=== PATIENT | male | born 1940 | race Caucasian/White ===

== ENCOUNTER → 2018-04-18 | Outpatient (CLI) | payer OTHER ==
[~2018-04-18] VITALS: Ht 175.3 cm; Wt 79.4 kg
[~2018-04-18] MED LIST: ASPIR 8181 MG PO; BYSTOLIC 5 MG5 M1 PO; COZAAR100 MG PO; DIOVAN320 MG PO; HYDROCHLOROTH12.5 M1 PO; METAMUCIL PLUS1 EACH PO; PROPECIA1 MG PO; ZOCOR80 MG PO
--- NOTE | ~2018-04-18 | CATHLAB ---
[facility] [place] [address] INVASIVE PROCEDURE REPORT Name: LIDA WARNER Room #: [facility] [id number] Admission: 04/18/18 Attend Phys: Duane Betts, Discharge: Date of : 42 Date of Service: 04/21/18 1616 Report #: [id number] THIS REPORT FOR: //name// APPROVED REPORT Study performed: 04/18/2018 09:22:01 Patient Details Patient Status: Out-Patient Room #: The patient is a 78 year-old male Event Personnel Duane Betts Release Manager, Jesus Huertas Knisely, Ceola RN RN, Sujata Trujillo RTR Monitor, Virginia Swain RTR, SENIOR TECHNICAL WRITER Monitor, Melody Rust RN Electronic Science Teacher Procedures Performed Left Heart Cath w/or w/o Coronaries [id number] [facility] Renal Bilateral Peripheral Angiography [id number] CVRENALBIL Procedure Narrative The Right Groin^ was infiltrated with 1% Lidocaine subcutaneous anesthesia. A PINNACLE 6FR Sheath #[id number] sheath was inserted into the RFA^. Coronary angiography was performed using coronary diagnostic catheters. The right coronary system was accessed and visualized with a JR4 catheter. The left coronary system was accessed and visualized with a J6FR JL5 #[id number] catheter. The left ventricle was accessed and visualized with a PIGTAIL catheter. Left ventriculogram was performed in 30 degree projection. Closure device was deployed with a 6 Fr MYNXGRIP 6/7F #[id number]. There was no hematoma. Intraoperative Conscious Sedation Sedation start time: 11.28 Case end Time: 11.39 Fentanyl 50 mcg Versed 1 mg Fluoro Time: 3.11 minutes Dose: DAP 2939.40 cGycm2 320 mGy Contrast Type and Amount: Omnipaque 150 ml Hemodynamics The aortic pressure is 189/84 mmHg with a mean of 124 mmHg. The left ventricular pressure is 194/14 mmHg with a mean of mmHg. The left ventricular end diastolic pressure is 30 mmHg. [facility] [address] [place] [address] INVASIVE PROCEDURE REPORT Name: LIDA WARNER [facility] [id number] Admission: 04/18/18 Attend Phys: Duane Betts, Discharge: Date of : 42 Date of Service: 04/21/18 1616 Report #: [id number] Conclusion #1 left main moderately diseased with calcification giving rise to LAD and circumflex. 30-40% throughout #2 LAD heavily calcified mild to moderate disease throughout it extends around the apex moderate disease of the diagonal system no high-grade occlusive disease 50-60% proximal narrowing #3 circumflex OM is nondominant with mild irregularity and also heavy calcification small OM system. Tight second OM branch with this is a 1.5 vessel. Treat medically #4 proximal dominant right coronary occlusion. There is extensive collateralization from the left system predominantly septal perforators to the PDA and MARCELINA. #5 left renal artery with 20% ostial disease #6 right renal artery with a 30-40% ostial narrowing #7 normal left ventricular size and systolic function lower limits of normal inferior base is hypokinetic. #8 abdominal aortogram is mild aortic ectasia and calcification but no significant aneurysm or stenosis is noted an aorto iliac system Continue aggressive risk factor modification. There is no indication for coronary intervention. The RCA occlusion appears to have been a remote event with excellent collateralization. No lifting for 48 hours no line tub Jacuzzi or Mullen for a week. Follow-up will be arranged <ELECTRONICALLY SIGNED> By: Duane Betts MD, FACC 04/21/18 161 15 15 Duane Betts MD, FACC /INF
--- NOTE | ~2018-04-18 | H ---
[facility] [address] [place] [address] HISTORY AND PHYSICAL Name: LIDA WARNER Room #: REG [facility]#: [id number] Admission: 04/18/18 Attend Phys: Duane Betts MD, Discharge: Date of : 42 Report #: [id number] THIS REPORT FOR: //name// CC: Samuel Betts HISTORY OF PRESENT ILLNESS: The patient is a 78-year-old male who is admitted today for right and left heart catheterization. Has had some chest pain with some typical and atypical features and a nuclear stress test suggesting inferior lateral ischemia. Possibly in the circumflex distribution. He had been having chest pain, but recently has been stable, he says and no real recurrence of this. He does have known vascular disease with a prior carotid endarterectomy. He has been compliant with his medications. MEDICATIONS: He has been maintained on baby aspirin; Propecia; Cozaar; metformin, which has been held, 1000 b.i.d.; simvastatin 80; omeprazole; and Metamucil. PAST MEDICAL HISTORY: Positive for the suspected coronary artery disease, carotid endarterectomy, hypertension, hypercholesterolemia, erectile dysfunction, DJD, COPD, prior smoker and diabetes. FAMILY HISTORY: Mother had premature coronary artery disease. SOCIAL HISTORY: He is . He is a prior smoker. Had a history of moderate alcohol intake in the past. REVIEW OF SYSTEMS: Essentially negative except for as stated above and some nocturia and frequency is noted. PHYSICAL EXAMINATION: VITAL SIGNS: Pulse of 60s, blood pressure 170/80. He has had labile hypertension. HEENT: Eyes reveal xanthelasmas. Pharynx is clear. NECK: Shows preserved upstrokes, faint right-sided bruit is noted. No JVD. LUNGS: Have prolonged expiratory phase. CARDIAC: Regular rate and rhythm; S1, S2. ABDOMEN: Soft. No HSM or abdominal bruit. EXTREMITIES: Reveal trace of edema. Distal pulses were intact. NEUROLOGIC: Nonfocal. SKIN: Warm and dry without xanthoma or ulcer. MUSCULOSKELETAL: No gross joint deformity. ASSESSMENT: 1. Suspected coronary artery disease with abnormal nuclear test. [facility] [address] [place] [address] HISTORY AND PHYSICAL Name: LIDA WARNER Room #: [facility]#: [id number] Admission: 04/18/18 Attend Phys: Duane Betts MD, Discharge: Date of : 42 Report #: [id number] 2. Labile refractory hypertension, possible renal artery stenosis or renal atherosclerosis. 3. Diabetes. 4. Hypertension. 5. Hypercholesterolemia. 6. Chronic obstructive pulmonary disease. 7. Strong family history of premature coronary artery disease. RECOMMENDATIONS AND PLAN: The patient will proceed to the catheterization lab and delineate his anatomy. Risks, benefits, alternatives were discussed with the patient and patient's and they elect to proceed. Thank you for asking me to assist in the care of this patient. <ELECTRONICALLY SIGNED> By: Daune Betts MD, [facility] 04/18/18 1246 0919 [id number] Duane Betts MD, [facility] /nt
[2018-04-18 08:31] VITALS: BP 170/80
[2018-04-18 09:08] LABS: HEMATOCRIT 38.8 % (42.0-52.0); HEMOGLOBIN 13.8 gm/dL (14.0-18.0); MCH 30.8 pg (26.0-34.0); MCHC 35.5 g/dL (28.0-37.0); MCV 86.8 fL (80.0-100.0); RBC 4.47 mil/uL (4.50-6.00); RDW 12.6 % (10.5-14.5); WBC 3.7 thou/uL (4.0-11.0)
[2018-04-18 09:16] LABS: CALCIUM 9.1 mg/dL (8.5-10.1); CREATININE 0.9 mg/dL (0.7-1.3); POTASSIUM 4.2 mmol/L (3.5-5.1)
== END | disposition home or self-care (01) ==
LOC: CATH 08:09
PROVIDERS: Internal Medicine Cardiovascular Disease
DX: I25.10 Atherosclerotic heart disease of native coronary artery without angina pectoris (principal); I25.82 Chronic total occlusion of coronary artery; I77.819 Aortic ectasia, unspecified site; I77.1 Stricture of artery; I65.23 Occlusion and stenosis of bilateral carotid arteries; I10 Essential (primary) hypertension; E78.00 Pure hypercholesterolemia, unspecified; M19.90 Unspecified osteoarthritis, unspecified site; J44.9 Chronic obstructive pulmonary disease, unspecified; E11.9 Type 2 diabetes mellitus without complications; Z87.891 Personal history of nicotine dependence; Z79.899 Other long term (current) drug therapy; Z79.82 Long term (current) use of aspirin; Z82.49 Family history of ischemic heart disease and other diseases of the circulatory system; Z98.890 Other specified postprocedural states

== ENCOUNTER → 2019-06-19 | Outpatient (CLI) | payer OTHER ==
[~2019-06-19] VITALS: Ht 175.3 cm; Wt 79.4 kg
[~2019-06-19] MED LIST changes: +ARED PO; +EDARBI40 MG PO; +NORCO 5-325 TA1 EAC1 PO; +NORVASC5 MG PO; +PRESERVISION A1 EAC2 PO; +VITAMIN D3 COM1 EACH PO
--- NOTE | ~2019-06-19 | HPC ---
[facility] [address] [place] [address] PAIN MANAGEMENT CONSULTATION Name: LIDA WARNER Room #: REG [facility] Sun#: [id number] Admission: 06/19/19 Attend Phys: Sapphire Brown MD Discharge: Date of : 42 Report #: [id number] THIS REPORT FOR: //name// CC: Samuel Brown DATE OF SERVICE: 06/19/2019 CHIEF COMPLAINT: Pain in the back of the head and radiating over the top of the head and sometimes into the area of the eye. HISTORY OF PRESENT ILLNESS: The patient is a 79-year-old gentleman who has been referred to the Pain Clinic because of pain and discomfort that he has been experiencing. It involves his neck. This then radiates to the lateral portion of his head as well as sometimes to the top of his head. He has some perception of throbbing and discomfort behind his eye. Denies any rash. He has not had shingles in the past. He denies any trauma. He has not had surgery in the neck. Denies any similar problem. Describes as electrical component to it and feels like he experiences a shock. Denies anything that makes it significantly worse or better. Describes as rhythmic, periodic, aching, sharp and stabbing. Rates it as a 6/10 today. Oftentimes between a 4-8 depending on the time of day. Does not have a history of headaches. ALLERGIES: No known drug allergies. CURRENT MEDICATIONS: Multivitamins, ____ vitamin D3 capsule, azilsartan 40 mg, Norvasc 5 mg, hydrocodone 5/325 one p.o. q. 4 hours p.r.n. pain, simvastatin 80 mg, aspirin 81 mg. PAST MEDICAL HISTORY: Carotid artery disease, lumbar disk disease, generalized anxiety disorder, GERD, esophageal reflux, vertigo/dizziness, benign prostatic hypertrophy with lower urinary tract symptoms, hyperlipidemia, and hypertension. PAST SURGICAL HISTORY: Back upper 4 vertebrae 1989. SOCIAL HISTORY: He is retired, 2002, [employer]cology Social [employer] of the company. REVIEW OF SYSTEMS: Generally good health, fatigue, weakness, wears glasses, blurred vision, hearing loss, chronic sinus problems, mini stroke, fatigue, weakness. LABORATORY DATA: No laboratory values are available at the time of our interview. PAIN CLINIC ASSESSMENT/PQRS: 1. The patient is not being treated for [place] [address] PAIN MANAGEMENT CONSULTATION Name: LIDA WARNER [id number] Admission: 06/19/19 Attend Phys: Sapphire Brown MD Discharge: Date of : 42 Report #: [id number] 2. Height 5 feet 9 inches, weight 175 pounds, BMI is 25.8. 3. Vital Signs: Blood pressure 121/70, pulse 71, respiratory rate 16, room air saturation 98%. 4. Pain intensity, 10 5. Fall history: The patient has not fallen in the last 3 months. 6. Blood thinner. The patient is not on a blood thinning medication. 7. Hypertension. The patient is being treated for hypertension. 8. Opioids greater than 6 weeks. The patient is not on a regular opioid regimen. 9. Risk assessment tool, low for opioid use. 10. Functional assessment tool, . 11. Recreational drug use. The patient denies. 12. Tobacco: The patient is a former smoker. 13. Alcohol: The patient denies frequent use of alcoholic beverages. PHYSICAL EXAMINATION: GENERAL: The patient is a well-developed, well-nourished white male. Appears his stated age. He is alert and oriented x 3. His affect is appropriate. Speech is fluent. HEENT: Normocephalic, atraumatic. Extraocular eye muscles intact. Sclerae nonicteric. Mucous membranes are moist. NECK: Without adenopathy. LUNGS: Generally clear to auscultation. CARDIAC: S1, S2. ABDOMEN: Nontender. Bowel sounds present. EXTREMITIES: Upper extremity muscle strength judged to be 5/5 for the major muscle groups in the upper extremity. The patient is without significant scoliosis, kyphosis or lordosis. Lower extremity muscle strength judged to be 5/5 for the major muscle groups in the upper extremity. The patient has pain and discomfort in the left occipital area. Palpation of this area causes a reproduction of the patient's pain and discomfort in the left side. Has a perception of some pain and discomfort behind the left eye. Some discomfort over the lateral temporal area. Has noted some discomfort on the top of his head. IMPRESSION: 1. Pain involving the area of the left greater occipital nerve. 2. Carotid artery disease. 3. Lumbar disk disease. 4. Generalized anxiety disorder. 5. Gastroesophageal reflux disease. 6. Esophageal reflux. 7. Vertigo/dizziness. 8. Benign prostatic hypertrophy with lower urinary tract symptoms. 9. Hyperlipidemia. 10. Hypertension. [facility] [address] [place] [address] PAIN MANAGEMENT CONSULTATION Name: LIDA WARNER Room #: REG [facility]#: [id number] Admission: 06/19/19 Attend Phys: Sapphire Brown MD Discharge: Date of : 42 Report #: [id number] RECOMMENDATIONS: We discussed treatment options with the patient. We explained to the patient that his findings are typical for occipital neuralgia. He has pain and discomfort in a distribution that is commonly described. Radiates up the left side of his head. Some patients have discomfort and a feeling of pressure behind their eye on the ipsilateral side. We have discussed the risk and benefits of injecting the area of the left occipital nerve. Possible complications of the procedure could include infection, worsening pain, no improvement in pain, infection, bleeding and the patient elects to proceed. PROCEDURE NOTE: The patient questions were sought and answered. He was taken to the procedure area. He was then assisted in getting on the examination table. The left occipital area was sterilely prepped with a chlorhexidine solution and allowed to dry. This area was then injected using a 25-gauge needle and a total of 7 mL of 0.5% bupivacaine and 40 mg triamcinolone was injected. The patient tolerated the procedure well. He was then taken to the recovery room where he remained for an appropriate amount of time. His pain decreased to 0 at the time of discharge. He will follow up in the future as needed. We would like to thank you for letting us participate in his care. We hope he continues to improve. By: [id number] Sapphire Brown MD /nt
[2019-06-19 11:09] VITALS: BP 121/70
--- NOTE | 2019-06-19 11:27 | NUR ---
Pain Clinic Assessment: 1. History of Osteoarthritis: Not Applicable Not Applicable History of Rheumatoid Arthritis: Not Applicable 2. Height: 5 ft. 9 in. 175.3 cm. Weight: 175.0 lb. oz. 79.380 kg. Patient's BMI: 25.8 3. Vital Signs: BP: 121/70 Pulse: 72 Resp: 16 Temp: 02 Sat: 98 ECG Mon: 4. Pain Intensity: 6 5. Fall Risk: Dizziness: N Needs help standing or walking: N Fallen in the last 3 months: N Fall risk comments: 6. Patient on Blood Thinner: None 7. History of Hypertension: Y 8. Opioid Therapy greater than 6 weeks: N Opiate Contract Signed: 9. Risk Assessment Tool Provided: low-0 10. Functional Assessment Tool: 11. Recreational Drug Use: Never Drug Type: Tobacco Use: Former Smoker Tobacco Type: Amount or Packs/day: How Many Years: Alcohol Use: No Frequency: Quant:
== END | disposition home or self-care (01) ==
LOC: PAIN 06:50
DX: M54.81 Occipital neuralgia (principal); G89.29 Other chronic pain; I10 Essential (primary) hypertension; E78.5 Hyperlipidemia, unspecified; N40.1 Benign prostatic hyperplasia with lower urinary tract symptoms; K21.9 Gastro-esophageal reflux disease without esophagitis; F41.1 Generalized anxiety disorder; I65.29 Occlusion and stenosis of unspecified carotid artery; R42 Dizziness and giddiness; Z79.891 Long term (current) use of opiate analgesic; Z98.890 Other specified postprocedural states; Z79.899 Other long term (current) drug therapy; Z87.891 Personal history of nicotine dependence; Z79.82 Long term (current) use of aspirin

== ENCOUNTER → 2019-07-01 | Outpatient (CLI) | payer OTHER ==
[~2019-07-01] VITALS: Ht 175.3 cm; Wt 79.8 kg
--- NOTE | ~2019-07-01 | HPC ---
[facility] [place] [address] [place] [address] PAIN MANAGEMENT CONSULTATION Name: LIDA WARNER Room #: REG [facility].#: [id number] Admission: 07/01/19 Attend Phys: Sapphire Brown MD Discharge: Date of : 42 Report #: [id number] THIS REPORT FOR: //name// CC: Samuel Brown DATE OF SERVICE: 07/01/2019 PRIMARY CARE PHYSICIAN: Samuel Iraheta MD CHIEF COMPLAINT: "The pain improved and it has gone from my shoulder, but I am still having pain on the top of my head around the temporal area and into the eye." HISTORY: The patient is a 79-year-old gentleman who has been seen in the pain clinic because of chronic pain. He has had pain in the left occipital area. He underwent an injection at the last visit. He noticed resolution of pain and discomfort he was experiencing in the lower portion of his neck down the shoulder and into the posterior neck area. He now has pain, which is most problematic over the top of his head around the lateral temporal area, in the area of the forehead and has some perception of pain and discomfort behind his left eye. ALLERGIES: No known drug allergies. CURRENT MEDICATIONS: Multivitamins, vitamin D3, Azilsartan 40 mg, Norvasc 5 mg, hydrocodone 5/325 one p.o. 4 hours p.r.n. pain, simvastatin 80 mg, aspirin 81 mg. PAIN CLINIC ASSESSMENT/PQRS: 1. The patient is not being treated for osteoarthritis or rheumatoid arthritis. 2. Height 5 feet 9 inches, weight 176 pounds, BMI is 26. 3. Vital signs: Blood pressure 123/75, pulse 67, respiratory rate 14, room air saturation 98%. 4. Pain intensity 05/20. 5. Fall risk. The patient has not fallen in the last 3 months. 6. Blood thinner. The patient is not on a blood thinning medication. 7. Hypertension. The patient is being treated for hypertension. 8. Opioids greater than 6 weeks. The patient receives medication from one source. 9. Risk assessment tool, low for opioid use. 10. Functional assessment tool . 11. Recreational drug use. The patient denies. 12. Tobacco: The patient is a former smoker. 13. Alcohol. The patient denies frequent use of alcoholic beverages. [address] [address] PAIN MANAGEMENT CONSULTATION Name: LIDA WARNER Room #: REG [facility]#: [id number] Admission: 07/01/19 Attend Phys: Sapphire Brown MD Discharge: Date of : 42 Report #: [id number] PHYSICAL EXAMINATION: GENERAL: The patient is a well-developed, well-nourished white male. Appears his stated age. He is alert and oriented x 3. His affect is appropriate. Speech is fluent. HEENT: Normocephalic, atraumatic. Extraocular eye muscles intact. Sclerae nonicteric. Mucous membranes are moist. The patient has pain and discomfort in the left occipital area. Complains of pain that radiates up the area of the occipital nerve toward the left temporal area and notes some pain and discomfort in the left eye area. LUNGS: Clear to auscultation. CARDIAC: S1, S2. ABDOMEN: Nontender. Bowel sounds present. EXTREMITIES: Upper extremity muscle strength judged to be 5/5 for the major muscle groups in the upper extremity. The patient is without significant scoliosis, kyphosis or lordosis. The patient's lower extremity muscles are judged to be 5/5 for the major muscle groups in the lower extremity. The patient has pain in the occipital area towards the forehead. Has a perception of pain behind his left eye. IMPRESSION: 1. Improved right or left neck pain after injection of the left greater occipital nerve. 2. Carotid artery disease. 3. Lumbar disk disease. 4. Generalized anxiety disorder. 5. Gastroesophageal reflux. 6. Esophageal reflux. 7. Vertigo/dizziness. 8. Benign prostatic hypertrophy with urinary tract symptoms. 9. Hyperlipidemia. 10. Hypertension. RECOMMENDATIONS: We discussed treatment options with the patient. Risks and benefits of an injection in the occipital area were again discussed. Possible complications of the procedure, which could include but are not limited to infection, worsening the pain, no improvement in pain, bleeding, nerve damage were discussed and the patient elects to proceed. PROCEDURE NOTE: The patient was taken to the procedure area. He was then assisted in getting on the examination table. He was placed in the prone position. The left occipital area was sterilely prepped with a Betadine solution. A 25-gauge needle was then advanced into the area of the left greater occipital nerve. Aspiration was negative. A total of 8 mL of 0.5% bupivacaine and 40 mg triamcinolone was injected. The patient tolerated the procedure well. There were no complications. His pain decreased to 0 at the time of discharge. He is going to [place] for a social visit. He will call us if he has any [address] [address] PAIN MANAGEMENT CONSULTATION Name: LIDA WARNER Room #: REG [facility]#: [id number] Admission: 07/01/19 Attend Phys: Sapphire Brown MD Discharge: Date of : 42 Report #: [id number] concerns. We would like to thank you for letting us participate in his care. We hope he continues to improve. By: [id number] Sapphire Brown MD /CHRISTEN
[2019-07-01 08:59] VITALS: BP 123/75
--- NOTE | 2019-07-01 09:14 | NUR ---
Pain Clinic Assessment: 1. History of Osteoarthritis: Not Applicable Not Applicable History of Rheumatoid Arthritis: Not Applicable 2. Height: 5 ft. 9 in. 175.3 cm. Weight: 176.0 lb. oz. 79.833 kg. Patient's BMI: 26.0 3. Vital Signs: BP: 123/75 Pulse: 67 Resp: 14 Temp: 02 Sat: 98 ECG Mon: 4. Pain Intensity: 7 5. Fall Risk: Dizziness: N Needs help standing or walking: N Fallen in the last 3 months: N Fall risk comments: 6. Patient on Blood Thinner: None 7. History of Hypertension: Y 8. Opioid Therapy greater than 6 weeks: N Opiate Contract Signed: 9. Risk Assessment Tool Provided: low-0 10. Functional Assessment Tool: 11. Recreational Drug Use: Never Drug Type: Tobacco Use: Former Smoker Tobacco Type: Amount or Packs/day: How Many Years: Alcohol Use: No Frequency: Quant:
== END | disposition home or self-care (01) ==
LOC: PAIN 06:41
DX: M54.81 Occipital neuralgia (principal); M54.2 Cervicalgia; M51.36 Other intervertebral disc degeneration, lumbar region; I10 Essential (primary) hypertension; N40.1 Benign prostatic hyperplasia with lower urinary tract symptoms; E78.5 Hyperlipidemia, unspecified; F41.1 Generalized anxiety disorder; K21.9 Gastro-esophageal reflux disease without esophagitis; Z79.891 Long term (current) use of opiate analgesic; Z79.82 Long term (current) use of aspirin; Z87.891 Personal history of nicotine dependence; Z98.890 Other specified postprocedural states

== ENCOUNTER → 2020-06-24 | Outpatient (CLI) | payer OTHER ==
[~2020-06-24] VITALS: Ht 175.3 cm; Wt 77.1 kg
[~2020-06-24] MED LIST changes: +ZYRTEC10 M4 PO
[2020-06-24 09:33] VITALS: BP 113/59
--- NOTE | 2020-06-24 09:37 | NUR ---
Pain Clinic Assessment: 1. History of Osteoarthritis: SPINE History of Rheumatoid Arthritis: DENIES 2. Height: 5 ft. 9 in. 175.3 cm. Weight: 170.0 lb. oz. 77.112 kg. Patient's BMI: 25.1 3. Vital Signs: BP: 113/59 Pulse: 73 Resp: 14 Temp: 02 Sat: 97 ECG Mon: 4. Pain Intensity: 7 5. Fall Risk: Dizziness: N Needs help standing or walking: N Fallen in the last 3 months: N Fall risk comments: 6. Patient on Blood Thinner: None 7. History of Hypertension: Y 8. Opioid Therapy greater than 6 weeks: N Opiate Contract Signed: 9. Risk Assessment Tool Provided: low-0 10. Functional Assessment Tool: 11. Recreational Drug Use: Never Drug Type: Tobacco Use: Former Smoker Tobacco Type: Amount or Packs/day: How Many Years: Alcohol Use: No Frequency: Quant:
--- NOTE | 2020-07-07 13:25 | HPC ---
[facility] [place] [address] PAIN MANAGEMENT CONSULTATION Name: LIDA WARNER Room #: REG [facility] Carlota#: [id number] Admission: 06/24/20 Attend Phys: Sapphire Brown MD Discharge: Date of : 42 Report #: [id number] THIS REPORT FOR: cc: Samuel Iraheta MD, Bernard O. MD Brown,Sapphire Patton MD ~ CC: Samuel Brown DATE OF SERVICE: 06/24/2020 CHIEF COMPLAINT: Return of the pain in the occipital area. Last injection was very helpful. HISTORY: The patient is a 80-year-old gentleman who has been seen in the pain clinic because of occipital neuralgia in the past. He has noticed over the past 7 days a recurrence of pain and discomfort. There is pain in the back of his neck. It starts in the posterior portion of his head and then radiates forward. He does feel as though he has some pain behind his left eye. This is similar to what he experienced in the past. Denies any trauma. Pressure in the left posterior area can increase the pain, discomfort, and worsen his symptoms. ALLERGIES: No known drug allergies. CURRENT MEDICATIONS: Zyrtec 10 mg, vitamin C, vitamin D3 complete, medoxomil (Edarbi) 40 mg blood pressure, Zocor 80 mg, and aspirin 81 mg. PAIN CLINIC ASSESSMENT/PQRS: 1. The patient is not being treated for osteoarthritis or rheumatoid arthritis. 2. Height 5 feet 9 inches, weight 170 pounds, BMI is 25. 3. Vital signs: Blood pressure is 113/59, pulse 73, respiratory rate 14, room air saturation is 97%. 4. Pain intensity 05/20. 5. Fall history: The patient has not fallen in the last 3 months. 6. Blood thinner. The patient is not on a blood thinning medication. 7. Hypertension. The patient is being treated for hypertension. 8. Opioids greater than 6 weeks. The patient receives medications from his primary. 9. Risk assessment tool, low for opioid use. 10. Functional assessment tool, . 11. Recreational drug use. The patient denies. 12. Tobacco: The patient is a former smoker. 13. Alcohol. The patient denies frequent use of alcoholic beverages. PHYSICAL EXAMINATION: [facility] [address] [place] [address] PAIN MANAGEMENT CONSULTATION Name: LIDA WARNER Room #: REG [facility]#: [id number] Admission: 06/24/20 Attend Phys: Sapphire Brown MD Discharge: Date of : 42 Report #: [id number] GENERAL: The patient is a well-developed, well-nourished white male. Appears his stated age. He is alert and oriented x 3. His affect is appropriate. Speech is fluent. HEENT: Normocephalic, atraumatic. Extraocular eye muscles intact. Sclerae nonicteric. Mucous membranes are moist. The patient has pain and discomfort in the left occipital area. Palpation in this area does cause pain to radiate into the top of his head temporal area and has a perception of some pain behind his left eye. The patient has facial covering onboard. NECK: Without adenopathy or JVD. LUNGS: Generally clear to auscultation. HEART: S1, S2. ABDOMEN: Nontender. EXTREMITIES: Upper extremity muscle strength judged to be 5/5 for the major muscle groups in the upper extremity. The patient without significant scoliosis, kyphosis, or lordosis. Lower extremity muscle strength 5/5 for the major muscle groups in the lower extremity. The patient has pain and discomfort in the occipital area. Notes increased pain with leaning his head forward. IMPRESSION: 1. Occipital neuralgia on the left. 2. Carotid artery disease. 3. Lumbar disk disease. 4. Generalized anxiety disorder. 5. Gastroesophageal reflux. 6. Vertigo/dizziness. 7. Benign prostatic hypertrophy with urinary tract symptoms. 8. Hyperlipidemia. 9. Hypertension. RECOMMENDATIONS: We discussed treatment options with the patient. Risks and benefits of an occipital injection were discussed. We again discussed the problems for occipital pain. This is the second nerve of spinal cord. This can cause pain and discomfort as he has described. He was pleased with the past treatment course. We discussed the risks and benefits of the procedure, which could include infection, worsening of pain, no improvement in pain, muscle soreness, infection, and the patient elects to proceed. PROCEDURE NOTE: The patient was taken to the procedure area. He was then assisted in getting on the examination table. He sat in the prone position. The left occipital area was sterilely prepped with a chlorhexidine solution. This was allowed to dry. The left greater occipital nerve was identified. This area was then infiltrated with 0.25% bupivacaine and 40 mg triamcinolone. The patient tolerated the procedure well. His pain, which was scored as a 7/10 decreased to 0 at the time of discharge. He will follow up in the future as needed. [facility] [address] [place] [address] PAIN MANAGEMENT CONSULTATION Name: LIDA WARNER Room #: NIR Van#: [id number] Admission: 06/24/20 Attend Phys: Sapphire Brown MD Discharge: Date of : 42 Report #: [id number] We would like to thank you for letting us participate in his care. We hope he continues to improve. <ELECTRONICALLY SIGNED> By: Sapphire Brown MD 07/07/20 1325 [id number] Sapphire Brown MD /[facility]
== END | disposition home or self-care (01) ==
LOC: PAIN 06:53
PROVIDERS: ATTEND Anesthesiology Pain Medicine
DX: M54.81 Occipital neuralgia (principal); G89.29 Other chronic pain; I10 Essential (primary) hypertension; N40.1 Benign prostatic hyperplasia with lower urinary tract symptoms; E78.5 Hyperlipidemia, unspecified; K21.9 Gastro-esophageal reflux disease without esophagitis; F41.1 Generalized anxiety disorder; R42 Dizziness and giddiness; Z98.890 Other specified postprocedural states; Z79.899 Other long term (current) drug therapy

== ENCOUNTER → 2020-08-16 | Outpatient (CLI) | payer OTHER | LOC: SJCVC 15:06 → SJCVCIMAG 15:06 | PROVIDERS: ATTEND Internal Medicine Cardiovascular Disease | DX: I65.23 Occlusion and stenosis of bilateral carotid arteries (principal); I25.10 Atherosclerotic heart disease of native coronary artery without angina pectoris; I10 Essential (primary) hypertension; E78.00 Pure hypercholesterolemia, unspecified ==

== ENCOUNTER → 2021-04-14 | Outpatient (CLI) | payer OTHER ==
[~2021-04-14] VITALS: Ht 175.3 cm; Wt 75.9 kg
[~2021-04-14] MED LIST changes: +VITAMIN D3 PO
[2021-04-14 09:13] VITALS: BP 113/71
--- NOTE | 2021-04-14 09:27 | NUR ---
Pain Clinic Assessment: 1. History of Osteoarthritis: SPINE History of Rheumatoid Arthritis: DENIES 2. Height: 5 ft. 9 in. 175.3 cm. Weight: 167.4 lb. oz. 75.932 kg. Patient's BMI: 24.7 3. Vital Signs: BP: 113/71 Pulse: 90 Resp: 16 Temp: 02 Sat: 98 ECG Mon: 4. Pain Intensity: 10 5. Fall Risk: Dizziness: N Needs help standing or walking: N Fallen in the last 3 months: N Fall risk comments: 6. Patient on Blood Thinner: None 7. History of Hypertension: Y 8. Opioid Therapy greater than 6 weeks: N Opiate Contract Signed: 9. Risk Assessment Tool Provided: low-0 10. Functional Assessment Tool: 11. Recreational Drug Use: Never Drug Type: Tobacco Use: Former Smoker Tobacco Type: Amount or Packs/day: How Many Years: Alcohol Use: No Frequency: Quant:
== END | disposition home or self-care (01) ==
LOC: PAIN 07:06
PROVIDERS: ATTEND Anesthesiology Pain Medicine
DX: M79.18 Myalgia, other site (principal); G89.29 Other chronic pain; M54.81 Occipital neuralgia; I10 Essential (primary) hypertension; I25.10 Atherosclerotic heart disease of native coronary artery without angina pectoris; E78.5 Hyperlipidemia, unspecified; K21.9 Gastro-esophageal reflux disease without esophagitis; N40.1 Benign prostatic hyperplasia with lower urinary tract symptoms; F41.1 Generalized anxiety disorder; Z98.890 Other specified postprocedural states; Z79.899 Other long term (current) drug therapy; Z86.73 Personal history of transient ischemic attack (TIA), and cerebral infarction without residual deficits; Z87.891 Personal history of nicotine dependence

== ENCOUNTER → 2021-06-14 | Outpatient (CLI) | payer OTHER ==
[~2021-06-14] VITALS: Ht 175.3 cm; Wt 74.2 kg
[~2021-06-14] MED LIST changes: +HYDROCODON-ACE1 EAC7 PO; +NORCO5 PO
[2021-06-14 12:54] VITALS: BP 151/73
--- NOTE | 2021-06-14 13:13 | NUR ---
Pain Clinic Assessment: 1. History of Osteoarthritis: SPINE History of Rheumatoid Arthritis: DENIES 2. Height: 5 ft. 9 in. 175.3 cm. Weight: 163.6 lb. oz. 74.208 kg. Patient's BMI: 24.1 3. Vital Signs: BP: 151/73 Pulse: 60 Resp: 16 Temp: 02 Sat: 97 ECG Mon: 4. Pain Intensity: 9.5 5. Fall Risk: Dizziness: N Needs help standing or walking: N Fallen in the last 3 months: N Fall risk comments: 6. Patient on Blood Thinner: None 7. History of Hypertension: Y 8. Opioid Therapy greater than 6 weeks: N Opiate Contract Signed: 9. Risk Assessment Tool Provided: low-0 10. Functional Assessment Tool: 11. Recreational Drug Use: Never Drug Type: Tobacco Use: Former Smoker Tobacco Type: Amount or Packs/day: How Many Years: Alcohol Use: No Frequency: Quant:
== END | disposition home or self-care (01) ==
LOC: PAIN 07:07
PROVIDERS: ATTEND Anesthesiology Pain Medicine
DX: M51.16 Intervertebral disc disorders with radiculopathy, lumbar region (principal); G89.29 Other chronic pain; I10 Essential (primary) hypertension; I25.10 Atherosclerotic heart disease of native coronary artery without angina pectoris; E78.5 Hyperlipidemia, unspecified; N40.1 Benign prostatic hyperplasia with lower urinary tract symptoms; F41.1 Generalized anxiety disorder; K21.9 Gastro-esophageal reflux disease without esophagitis; Z98.890 Other specified postprocedural states; Z79.899 Other long term (current) drug therapy; Z86.73 Personal history of transient ischemic attack (TIA), and cerebral infarction without residual deficits; Z87.891 Personal history of nicotine dependence